=== PATIENT | male | born 1970 | race Caucasian/White ===

== ENCOUNTER 2017-03-19 01:00 | Emergency (ER) | payer SELFPAY ==
[~2017-03-19] VITALS: Ht 180.3 cm; Wt 90.7 kg
[2017-03-19] MEDS ORDERED: OMEP40CA2 PO (01:09)
[2017-03-19] MEDS ORDERED: OXYCODONE/APAP 5MG/325MG(BULK FOR ED) 1 TABLET PO ONE (01:30)
[2017-03-19] MEDS ORDERED: KETOROLAC 60 MG/2 ML VIAL (J1885) IM ONE (01:30)
[2017-03-19] MEDS ORDERED: CYCLOBENZAPRINE 10 MG TAB PO ONE (01:30)
[2017-03-19] MEDS ORDERED: NAPR500T PO (01:58)
[2017-03-19] MEDS ORDERED: PERC5TAB6 PO (01:58)
[2017-03-19] MEDS ORDERED: CYCL10TA PO (01:58)
[2017-03-19 02:22] VITALS: BP 141/88
== END 2017-03-19 02:23 | disposition home or self-care (01) ==
LOC: M ED 01:53
DX: M54.5 Low back pain (principal); Z79.899 Other long term (current) drug therapy; F17.210 Nicotine dependence, cigarettes, uncomplicated
CPT/HCPCS: 96372; 99282; J1885

== ENCOUNTER 2017-03-25 11:56 | Emergency (ER) | payer SELFPAY ==
[~2017-03-25] VITALS: Ht 180.3 cm; Wt 95.3 kg
[~2017-03-25 11:56] MED LIST: CYCL10TA PO; NAPR500T PO; OMEP40CA2 PO; PERC5TAB6 PO
[2017-03-25] MEDS ORDERED: ADACEL/BOOSTRIX VACCINE (DIPHTH/PERTUSS/ACELL/TETANUS)0.5ML SYR (90715) IM ONE (12:45)
[2017-03-25] MEDS ORDERED: LIDOCAINE 2% W/EPIN INJ 20ML **PRES FREE INJ ONE (12:45)
[2017-03-25 12:58] VITALS: BP 127/83
== END 2017-03-25 13:01 | disposition home or self-care (01) ==
LOC: M ED 12:58
DX: S61.512A Laceration without foreign body of left wrist, initial encounter (principal); W18.02XA Striking against glass with subsequent fall, initial encounter; Y92.015 Private garage of single-family (private) house as the place of occurrence of the external cause; Y93.89 Activity, other specified; Y99.9 Unspecified external cause status; K21.9 Gastro-esophageal reflux disease without esophagitis; M54.9 Dorsalgia, unspecified; F17.200 Nicotine dependence, unspecified, uncomplicated; Z79.01 Long term (current) use of anticoagulants; Z79.899 Other long term (current) drug therapy